=== PATIENT | female | born 1955 | race Caucasian/White ===

== ENCOUNTER → 2022-10-24 | Outpatient (CLI) | payer MEDICARE, OTHER ==
[~2022-10-24] VITALS: Ht 157.5 cm; Wt 71.8 kg
[~2022-10-24] MED LIST: LIDOCAINE 1% INJ 10 ML VIAL INJ ONE; LIDOCAINE 1% INJ 10 ML VIAL ONE
--- NOTE | 2022-10-24 11:58 | Diagnostic Imaging Report ---
INDICATION: Left breast calcifications. PROCEDURE: The patient presents for stereotactic biopsy. The patient was brought to the stereotactic suite, placed in a chair in the sitting upright position. The left breast was positioned craniocaudal. Tomographic images were obtained. The small cluster of microcalcifications in the upper central left breast were stereotactically targeted. All images were viewed on a dedicated workstation. The superior left breast was then prepped and draped in the usual sterile fashion. A small amount 1% lidocaine was utilized for local anesthesia. The 8 gauge vacuum-assisted needle was advanced from a craniocaudal approach and placed per stereotactic coordinates. Four core biopsies were obtained. Specimen radiograph demonstrates numerous calcifications within samples labeled numbers 1, 2 and 4. A marker clip was then deployed. The needle was removed and hemostasis was obtained. 2-D, CC and ML mammography was performed postprocedure on a dedicated mammographic unit. Postprocedure images demonstrate a marker clip in the upper central left breast. The patient tolerated the procedure well and left the department in stable condition. IMPRESSION: Successful serotactic biopsy of left breast calcifications utilizing the 8-gauge vacuum-assisted device. Pathology results are currently pending. Dictated by: Dictated on workstation # [id number]
== END ==
LOC: RAD 07:42
PROVIDERS: ATTEND Family Medicine
DX: R92.0 Mammographic microcalcification found on diagnostic imaging of breast (principal)
CPT/HCPCS: 19081; A4648 ×2